=== PATIENT | male | born 1990 | race African-American/Black ===

== ENCOUNTER 2017-12-06 10:02 | Emergency (ER) | payer OTHER ==
[2017-12-06 12:56] LABS: ADD UMIC YES; UR AMORPHOUS CRYSTAL FEW /HPF (NONE SEEN); UR ASCORBIC ACID 40 mg/dL (NEGATIVE); UR BACTERIA FEW /HPF (NONE SEEN); UR BILIRUBIN (Dip) 1+ mg/dL (NEGATIVE); UR BLOOD (Dip) NEGATIVE (NEGATIVE); UR CLARITY TURBID (CLEAR); UR COLOR RED (YELLOW); UR GLUCOSE (Dip) NEGATIVE (NEGATIVE); UR KETONES (Dip) TRACE mg/dL (NEGATIVE); UR LEUKOCYTE ESTERASE (Dip) 2+ Leu/ul (NEGATIVE); UR MUCUS FEW /HPF (NONE SEEN); UR NITRITE (Dip) NEGATIVE (NEGATIVE); UR RBC 5 /HPF (0-5); UR SPECIFIC GRAVITY (Dip) 1.031 (1.003-1.030); UR SQUAMOUS EPITHELIAL CELL FEW /HPF (FEW); UR TOTAL PROTEIN (Dip) 3+ mg/dl (NEGATIVE); UR UROBILINOGEN (Dip) 1+ mg/dL (NEGATIVE); UR WBC 49 /HPF (0-5)
[2017-12-06] MEDS: CEFEPIME 1GM/50 ML (PMX) 50 ML IVPB (13:13)
[2017-12-06 13:20] LABS: ADD MAN DIFF? NO
[2017-12-06 13:23] LABS: WHITE BLOOD COUNT 11.2 10^3/ul (4.8-10.8)
[2017-12-06 13:23] LABS: BASOPHILS % 0.3 % (0.0-2.0); EOSINOPHILS # 0.1 10^3/ul (0.0-0.5); EOSINOPHILS % 1.1 % (0.0-7.0); HEMATOCRIT 33.5 % (42.0-52.0); LYMPHOCYTES # 2.6 10^3/ul (0.8-2.9); LYMPHOCYTES % 22.9 % (15.0-51.0); MEAN CORPUSCULAR HEMOGLOBIN 25.6 pg (29.0-33.0); MEAN CORPUSCULAR HGB CONC 29.9 g/dl (32.0-37.0); MEAN CORPUSCULAR VOLUME 85.9 fl (82.0-101.0); MEAN PLATELET VOLUME 8.2 fl (7.4-10.4); MONOCYTE # 0.7 10^3/ul (0.3-0.9); MONOCYTES % 6.5 % (0.0-11.0); NEUTROPHIL # 7.7 10^3/ul (1.6-7.5); NEUTROPHILS % 68.4 % (39.0-77.0); PLATELET COUNT 499 10^3/UL (140-415); RED CELL DISTRIBUTION WIDTH 19.9 % (11.5-14.5)
[2017-12-06] MEDS: FENTAnyl 50 MCG/ML VIAL IV (13:29)
[2017-12-06 13:43] LABS: ALANINE AMINOTRANSFERASE 18 IU/L (13-69); ALBUMIN 3.1 g/dl (3.3-4.9); ALBUMIN/GLOBULIN RATIO 0.72; ALKALINE PHOSPHATASE 170 IU/L (42-121); ANION GAP 14 (8-16); ASPARTATE AMINO TRANSFERASE 11 IU/L (15-46); BLOOD UREA NITROGEN 10 mg/dl (7-20); CALCIUM 8.2 mg/dl (8.4-10.2); CARBON DIOXIDE 25 mmol/L (21-31); CHLORIDE 112 mmol/L (97-110); CREATININE 0.53 mg/dl (0.61-1.24); GLUCOSE 93 mg/dl (70-220); POTASSIUM 3.6 mmol/L (3.5-5.1); SODIUM 147 mmol/L (135-144); TOTAL PROTEIN 7.4 g/dl (6.1-8.1)
[2017-12-06] MEDS: ONDANSETRON 4 MG INJ IV ×2 (15:36→17:38)
[2017-12-06] MEDS: HYDROmorphONE 0.5 MG/0.5 ML SYG IV ×2 (15:36→17:56)
[2017-12-06] MEDS: DIPHENHYDRAMINE 50 MG INJ IV (17:42)
== END 2017-12-06 19:05 | disposition home or self-care (01) ==
LOC: FTE 10:02 → E/R 19:05
DX: R30.0 Dysuria (principal); R50.9 Fever, unspecified; M54.9 Dorsalgia, unspecified
CPT/HCPCS: 74176; 80053; 81001; 85025; 87086; 96374; 96375; 96376; 99285-25

== ENCOUNTER 2019-02-25 14:28 | Inpatient (IN) | payer OTHER ==
[2019-02-25 18:18] LABS: ADD MAN DIFF? NO
[2019-02-25 18:24] LABS: BASOPHILS % 0.3 % (0.0-2.0); EOSINOPHILS # 0.2 10^3/ul (0.0-0.5); EOSINOPHILS % 3.7 % (0.0-7.0); HEMOGLOBIN 9.6 g/dl (14.0-18.0); LYMPHOCYTES % 32.4 % (15.0-51.0); MEAN CORPUSCULAR HEMOGLOBIN 27.9 pg (29.0-33.0); MEAN PLATELET VOLUME 8.5 fl (7.4-10.4); MONOCYTE # 0.6 10^3/ul (0.3-0.9); MONOCYTES % 9.2 % (0.0-11.0); NEUTROPHIL # 3.3 10^3/ul (1.6-7.5); NEUTROPHILS % 54.1 % (39.0-77.0); PLATELET COUNT 471 10^3/UL (140-415); RED BLOOD COUNT 3.44 10^6/ul (4.70-6.10); RED CELL DISTRIBUTION WIDTH 18.3 % (11.5-14.5)
[2019-02-25 18:24] LABS: WHITE BLOOD COUNT 6.2 10^3/ul (4.8-10.8)
[2019-02-25 18:49] LABS: ALANINE AMINOTRANSFERASE 12 IU/L (13-69); ALBUMIN 3.8 g/dl (3.3-4.9); ALBUMIN/GLOBULIN RATIO 0.86; ALKALINE PHOSPHATASE 197 IU/L (42-121); ANION GAP 7 (5-13); ASPARTATE AMINO TRANSFERASE 25 IU/L (15-46); BILIRUBIN,INDIRECT 0.6 mg/dl (0-1.1); BILIRUBIN,TOTAL 0.6 mg/dl (0.2-1.3); BLOOD UREA NITROGEN 10 mg/dl (7-20); CALCIUM 8.3 mg/dl (8.4-10.2); CARBON DIOXIDE 26 mmol/L (21-31); CHLORIDE 109 mmol/L (97-110); CREATININE 0.71 mg/dl (0.61-1.24); Estimated GFR > 60 mL/min (>60); GLUCOSE 86 mg/dl (70-220); LIPASE 57 U/L (23-300); POTASSIUM 4.6 mmol/L (3.5-5.1); SODIUM 142 mmol/L (135-144); TOTAL PROTEIN 8.2 g/dl (6.1-8.1)
[2019-02-25] MEDS: HYDROCODONE/APAP (10/325) TAB PO (19:52)
[2019-02-25] MEDS ORDERED: DOCUSATE SODIUM 100 MG CAP PO (20:00)
[2019-02-25] MEDS ORDERED: NACL 0.9% 3 ML SYG IV (20:00)
[2019-02-25] MEDS ORDERED: ACETAMINOPHEN 325 MG TAB PO (20:00)
[2019-02-25] MEDS ORDERED: BISACODYL (EC) 5 MG TAB PO (20:00)
[2019-02-25] MEDS: morphine 2 MG INJ IV (21:14)
[2019-02-25] MEDS: DIPHENHYDRAMINE 50 MG INJ IV (21:15)
[2019-02-25] MEDS ORDERED: PENDING SANTYL ORDER FOR WOUND CARE XX (23:00)
[2019-02-25] MEDS: oxyCODONE 15 MG TAB PO (23:04)
[2019-02-26] MEDS: ZOLPIDEM 5 MG TAB PO ×2 (00:03→23:05)
[2019-02-26] MEDS: COLLAGENASE 5 GM (UD JAR) TOP ×2 (00:03→09:00)
[2019-02-26] MEDS: HYDROmorphONE 1 MG/ML SYG IV ×6 (01:32→22:51)
[2019-02-26] MEDS: CARISOPRODOL 350 MG TAB PO ×3 (03:39→18:49)
[2019-02-26] MEDS ORDERED: COLLAGENASE 5 GM (UD JAR) TOP (06:00)
[2019-02-26] MEDS: DIPHENHYDRAMINE 50 MG INJ IV ×3 (06:39→22:52)
[2019-02-26] MEDS: LEVOFLOXACIN 750MG/D5W (PMX) 150 ML IVPB (10:40)
[2019-02-26] MEDS: ASCORBIC ACID 500 MG TAB PO ×2 (13:48→20:11)
[2019-02-26] MEDS: MULTIVITAMINS THERAPEUTIC TAB PO (13:48)
[2019-02-26] MEDS: ZINC SULFATE 220 MG CAP PO (14:05)
[2019-02-26] MEDS: oxyCODONE 15 MG TAB PO ×2 (14:05→18:25)
[2019-02-26 16:05] LABS: ADD MAN DIFF? NO
[2019-02-26 16:12] LABS: ABNORMAL IP MESSAGE 1; BASOPHILS % 0.4 % (0.0-2.0); EOSINOPHILS # 0.2 10^3/ul (0.0-0.5); EOSINOPHILS % 3.4 % (0.0-7.0); HEMATOCRIT 33.8 % (42.0-52.0); HEMOGLOBIN 9.7 g/dl (14.0-18.0); MEAN CORPUSCULAR HEMOGLOBIN 27.7 pg (29.0-33.0); MEAN CORPUSCULAR HGB CONC 28.7 g/dl (32.0-37.0); MEAN CORPUSCULAR VOLUME 96.6 fl (82.0-101.0); MONOCYTE # 0.4 10^3/ul (0.3-0.9); MONOCYTES % 7.2 % (0.0-11.0); NEUTROPHIL # 2.7 10^3/ul (1.6-7.5); NEUTROPHILS % 51.6 % (39.0-77.0); PLATELET COUNT 436 10^3/UL (140-415); POSITIVE DIFF @See below
[2019-02-26 16:12] LABS: WHITE BLOOD COUNT 5.3 10^3/ul (4.8-10.8)
[2019-02-26 16:20] LABS: MEAN PLATELET VOLUME 10.7 fl (7.4-10.4)
[2019-02-26 16:25] LABS: HEMOGLOBIN A1C 4.9 % (0-5.9)
[2019-02-26 16:30] LABS: INR 1.02; PROTIME 13.5 Sec (11.9-14.9); PT RATIO 1.1
[2019-02-26 16:31] LABS: PARTIAL THROMBOPLASTIN TIME 25.2 Sec (23.0-35.0)
[2019-02-26 16:40] LABS: ALBUMIN 3.8 g/dl (3.3-4.9); ALBUMIN/GLOBULIN RATIO 0.92; ALKALINE PHOSPHATASE 188 IU/L (42-121); ANION GAP 11 (5-13); ASPARTATE AMINO TRANSFERASE 22 IU/L (15-46); BILIRUBIN,INDIRECT 0.3 mg/dl (0-1.1); BILIRUBIN,TOTAL 0.3 mg/dl (0.2-1.3); BLOOD UREA NITROGEN 14 mg/dl (7-20); CALCIUM 8.5 mg/dl (8.4-10.2); CARBON DIOXIDE 21 mmol/L (21-31); CHLORIDE 111 mmol/L (97-110); CHOL/HDL RATIO 2.6 RATIO; CHOLESTEROL 131 mg/dl (100-200); CREATININE 0.65 mg/dl (0.61-1.24); Estimated GFR > 60 mL/min (>60); GLUCOSE 92 mg/dl (70-220); HDL CHOLESTEROL 49 mg/dl (30-63); LDL CHOLESTEROL,CALCULATED 66 mg/dl; MAGNESIUM 1.7 mg/dl (1.7-2.5); SODIUM 143 mmol/L (135-144); TOTAL PROTEIN 7.9 g/dl (6.1-8.1); TRIGLYCERIDES 80 mg/dl (0-149)
[2019-02-26 16:55] LABS: ALANINE AMINOTRANSFERASE < 6 IU/L (13-69)
[2019-02-26 17:41] LABS: ADD UMIC YES; UR ASCORBIC ACID 40 mg/dL (NEGATIVE); UR BACTERIA FEW /HPF (NONE SEEN); UR BILIRUBIN (Dip) NEGATIVE (NEGATIVE); UR BLOOD (Dip) NEGATIVE (NEGATIVE); UR CLARITY SLIGHTLY CLOUDY (CLEAR); UR COLOR YELLOW (YELLOW); UR GLUCOSE (Dip) NEGATIVE (NEGATIVE); UR KETONES (Dip) NEGATIVE (NEGATIVE); UR LEUKOCYTE ESTERASE (Dip) NEGATIVE Leu/ul (NEGATIVE); UR NITRITE (Dip) POSITIVE (NEGATIVE); UR RBC 6 /HPF (0-5); UR SPECIFIC GRAVITY (Dip) 1.012 (1.003-1.030); UR TOTAL PROTEIN (Dip) NEGATIVE (NEGATIVE); UR UROBILINOGEN (Dip) NEGATIVE (NEGATIVE); UR WBC 21 /HPF (0-5)
[2019-02-26 18:29] LABS: ANISOCYTOSIS 1+ (0-0); BASOPHIL #M 0.1 10^3/ul (0.0-0.0); BASOPHILS % (M) 2 % (0-2); LYMPHOCYTES #M 1.5 10^3/ul (0.8-2.9); LYMPHOCYTES % (M) 30 % (15-51); MONOCYTE #M 0.3 10^3/ul (0.3-0.9); MONOCYTES % (M) 6 % (0-11); SEGMENTED NEUTROPHILS (M) % 62 % (39-77); SMUDGE%M 20 % (0-0)
[2019-02-26] MEDS: ONDANSETRON 4 MG INJ IV (21:10)
[2019-02-27] MEDS: oxyCODONE 15 MG TAB PO ×5 (00:37→22:26)
[2019-02-27] MEDS: HYDROmorphONE 1 MG/ML SYG IV ×5 (03:06→20:19)
[2019-02-27] MEDS: CARISOPRODOL 350 MG TAB PO ×3 (03:07→20:19)
[2019-02-27] MEDS: DIPHENHYDRAMINE 50 MG INJ IV ×2 (07:23→15:59)
[2019-02-27] MEDS: COLLAGENASE 5 GM (UD JAR) TOP (09:00)
[2019-02-27] MEDS: ZINC SULFATE 220 MG CAP PO (09:38)
[2019-02-27] MEDS: ASCORBIC ACID 500 MG TAB PO ×2 (09:38→20:19)
[2019-02-27] MEDS: MULTIVITAMINS THERAPEUTIC TAB PO (09:38)
[2019-02-27] MEDS: ALPRAZOLAM 1 MG TAB PO ×2 (09:41→17:50)
[2019-02-27] MEDS: LEVOFLOXACIN 750MG/D5W (PMX) 150 ML IVPB (09:41)
[2019-02-27] MEDS: IOHEXOL 300MG/ML 150 ML BTL (10:19)
[2019-02-27] MEDS: LIDOCAINE 1% (MPF) 5 ML VIAL SC (15:00)
[2019-02-28] MEDS: HYDROmorphONE 1 MG/ML SYG IV ×5 (00:46→20:35)
[2019-02-28] MEDS: DIPHENHYDRAMINE 50 MG INJ IV ×4 (00:46→20:34)
[2019-02-28] MEDS: ZOLPIDEM 5 MG TAB PO ×2 (01:32→20:46)
[2019-02-28] MEDS: ALPRAZOLAM 1 MG TAB PO ×3 (02:02→18:22)
[2019-02-28] MEDS: oxyCODONE 15 MG TAB PO ×5 (02:44→21:50)
[2019-02-28] MEDS: CARISOPRODOL 350 MG TAB PO ×3 (05:49→18:22)
[2019-02-28] MEDS: COLLAGENASE 5 GM (UD JAR) TOP (09:00)
[2019-02-28] MEDS ORDERED: CEFAZOLIN 1 GM INJ (12:22)
[2019-02-28] MEDS ORDERED: LIDOCAINE 2% (SDV) 5 ML INJ (12:22)
[2019-02-28] MEDS ORDERED: PROPOFOL 20 ML (12:22)
[2019-02-28] MEDS ORDERED: MIDAZOLAM 1 MG/ML 2 ML INJ (12:22)
[2019-02-28] MEDS ORDERED: FENTAnyl 50 MCG/ML VIAL (12:22)
[2019-02-28] MEDS: MIDAZOLAM 1 MG/ML 2 ML INJ (13:05)
[2019-02-28] MEDS: PROPOFOL 40 ML (13:05)
[2019-02-28] MEDS: IOHEXOL 300MG/ML 30 ML BTL (13:14)
[2019-02-28] MEDS: LIDOCAINE 1% (MPF) 5 ML VIAL (13:14)
[2019-02-28] MEDS ORDERED: HYDROmorphONE 1 MG/5 ML IV SYRINGE IV ×3 (13:30)
[2019-02-28] MEDS ORDERED: ONDANSETRON 4 MG INJ IV (13:30)
[2019-02-28] MEDS ORDERED: ALBUTEROL 0.083% (NEB) 2.5 MG/3 ML AMP HHN (13:30)
[2019-02-28] MEDS ORDERED: LABETALOL HCL 20MG INJ IV (13:30)
[2019-02-28] MEDS: FENTAnyl 50 MCG/ML VIAL IV ×3 (15:13→15:29)
[2019-02-28 16:12] LABS: ADD MAN DIFF? NO
[2019-02-28 16:13] LABS: WHITE BLOOD COUNT 7.3 10^3/ul (4.8-10.8)
[2019-02-28 16:13] LABS: BASOPHILS % 0.3 % (0.0-2.0); EOSINOPHILS # 0.2 10^3/ul (0.0-0.5); EOSINOPHILS % 3.3 % (0.0-7.0); HEMATOCRIT 30.7 % (42.0-52.0); LYMPHOCYTES # 1.7 10^3/ul (0.8-2.9); LYMPHOCYTES % 22.9 % (15.0-51.0); MEAN CORPUSCULAR HGB CONC 29.3 g/dl (32.0-37.0); MEAN CORPUSCULAR VOLUME 95.3 fl (82.0-101.0); MEAN PLATELET VOLUME 8.2 fl (7.4-10.4); MONOCYTE # 0.9 10^3/ul (0.3-0.9); MONOCYTES % 12.3 % (0.0-11.0); NEUTROPHIL # 4.4 10^3/ul (1.6-7.5); NEUTROPHILS % 60.9 % (39.0-77.0); PLATELET COUNT 498 10^3/UL (140-415); RED BLOOD COUNT 3.22 10^6/ul (4.70-6.10); RED CELL DISTRIBUTION WIDTH 18.6 % (11.5-14.5)
[2019-02-28] MEDS: ZINC SULFATE 220 MG CAP PO (16:28)
[2019-02-28] MEDS: MULTIVITAMINS THERAPEUTIC TAB PO (16:28)
[2019-02-28] MEDS: ASCORBIC ACID 500 MG TAB PO ×2 (16:28→20:34)
[2019-02-28 16:35] LABS: ALBUMIN 3.2 g/dl (3.3-4.9); ANION GAP 6 (5-13); BLOOD UREA NITROGEN 13 mg/dl (7-20); CALCIUM 8.2 mg/dl (8.4-10.2); CARBON DIOXIDE 27 mmol/L (21-31); CHLORIDE 108 mmol/L (97-110); CREATININE 0.64 mg/dl (0.61-1.24); GLUCOSE 86 mg/dl (70-220); MAGNESIUM 1.7 mg/dl (1.7-2.5); PHOSPHORUS 3.7 mg/dl (2.5-4.9); POTASSIUM 4.8 mmol/L (3.5-5.1); SODIUM 141 mmol/L (135-144)
[2019-02-28] MEDS: LEVOFLOXACIN 750 MG TABLET PO (17:20)
[2019-02-28] MEDS: AMOXICILLIN 500 MG CAP PO (20:34)
[2019-02-28] MEDS ORDERED: HYDROmorphONE 2 MG/ML SYG (23:03)
[2019-02-28] MEDS: HYDROmorphONE 2 MG/ML SYG IV (23:06)
[2019-03-01] MEDS: DIPHENHYDRAMINE 50 MG INJ IV ×6 (01:30→23:31)
[2019-03-01] MEDS: oxyCODONE 15 MG TAB PO ×6 (01:48→22:19)
[2019-03-01] MEDS: ALPRAZOLAM 1 MG TAB PO ×3 (02:40→18:22)
[2019-03-01] MEDS: CARISOPRODOL 350 MG TAB PO ×3 (02:40→18:18)
[2019-03-01] MEDS: HYDROmorphONE 2 MG/ML SYG IV ×6 (03:37→23:32)
[2019-03-01] MEDS: COLLAGENASE 5 GM (UD JAR) TOP (09:00)
[2019-03-01] MEDS: AMOXICILLIN 500 MG CAP PO ×3 (10:18→21:15)
[2019-03-01] MEDS: ASCORBIC ACID 500 MG TAB PO ×2 (10:18→21:15)
[2019-03-01] MEDS: MULTIVITAMINS THERAPEUTIC TAB PO (10:19)
[2019-03-01] MEDS: ZINC SULFATE 220 MG CAP PO (10:19)
[2019-03-01] MEDS: LEVOFLOXACIN 750 MG TABLET PO (10:30)
[2019-03-01] MEDS: TRIMETHOPRIM/SULFAMETHOX (DS) TAB PO ×2 (14:14→21:15)
[2019-03-01] MEDS: ZOLPIDEM 5 MG TAB PO (21:20)
[2019-03-02] MEDS: CARISOPRODOL 350 MG TAB PO ×3 (02:26→18:34)
[2019-03-02] MEDS: ALPRAZOLAM 1 MG TAB PO ×3 (02:26→18:34)
[2019-03-02] MEDS: DAKINS 0.0125%(1/40) 473 ML SOLUTION TP ×2 (02:51→09:00)
[2019-03-02] MEDS: oxyCODONE 15 MG TAB PO ×5 (03:07→20:32)
[2019-03-02] MEDS: HYDROmorphONE 2 MG/ML SYG IV ×5 (03:44→23:28)
[2019-03-02] MEDS: DIPHENHYDRAMINE 50 MG INJ IV ×6 (03:44→23:28)
[2019-03-02] MEDS: AMOXICILLIN 500 MG CAP PO ×3 (08:03→20:33)
[2019-03-02] MEDS: MULTIVITAMINS THERAPEUTIC TAB PO (08:03)
[2019-03-02] MEDS: ASCORBIC ACID 500 MG TAB PO ×2 (08:03→20:33)
[2019-03-02] MEDS: ZINC SULFATE 220 MG CAP PO (08:03)
[2019-03-02] MEDS: TRIMETHOPRIM/SULFAMETHOX (DS) TAB PO ×2 (08:03→20:33)
[2019-03-02] MEDS: COLLAGENASE 5 GM (UD JAR) TOP (09:00)
[2019-03-02] MEDS: HYDROmorphONE 1 MG/ML SYG IV (19:27)
[2019-03-02] MEDS: ZOLPIDEM 5 MG TAB PO (22:28)
[2019-03-03] MEDS: oxyCODONE 15 MG TAB PO ×6 (00:34→21:48)
[2019-03-03] MEDS: HYDROmorphONE 2 MG/ML SYG IV ×5 (03:30→20:15)
[2019-03-03] MEDS: DIPHENHYDRAMINE 50 MG INJ IV ×5 (03:30→20:15)
[2019-03-03] MEDS: DAKINS 0.0125%(1/40) 473 ML SOLUTION TP ×2 (05:11→08:59)
[2019-03-03] MEDS: ALPRAZOLAM 1 MG TAB PO ×3 (06:57→23:08)
[2019-03-03] MEDS: CARISOPRODOL 350 MG TAB PO ×3 (06:57→23:08)
[2019-03-03] MEDS: ZINC SULFATE 220 MG CAP PO (08:58)
[2019-03-03] MEDS: AMOXICILLIN 500 MG CAP PO ×3 (08:58→20:16)
[2019-03-03] MEDS: COLLAGENASE 5 GM (UD JAR) TOP (08:58)
[2019-03-03] MEDS: TRIMETHOPRIM/SULFAMETHOX (DS) TAB PO ×2 (08:58→20:16)
[2019-03-03] MEDS: ASCORBIC ACID 500 MG TAB PO ×2 (08:58→20:16)
[2019-03-03] MEDS: MULTIVITAMINS THERAPEUTIC TAB PO (08:58)
[2019-03-03] MEDS: ONDANSETRON 4 MG INJ IV (14:13)
[2019-03-03] MEDS: oxyCODONE 5 MG TAB PO ×2 (17:49→21:51)
[2019-03-03 20:43] LABS: ALBUMIN 3.6 g/dl (3.3-4.9); ANION GAP 10 (5-13); BLOOD UREA NITROGEN 19 mg/dl (7-20); CALCIUM 9.1 mg/dl (8.4-10.2); CARBON DIOXIDE 21 mmol/L (21-31); CHLORIDE 110 mmol/L (97-110); CREATININE 0.76 mg/dl (0.61-1.24); GLUCOSE 101 mg/dl (70-220); PHOSPHORUS 4.7 mg/dl (2.5-4.9); SODIUM 141 mmol/L (135-144)
[2019-03-03] MEDS: ZOLPIDEM 5 MG TAB PO (21:48)
[2019-03-04] MEDS: HYDROmorphONE 2 MG/ML SYG IV ×3 (00:19→08:39)
[2019-03-04] MEDS: DIPHENHYDRAMINE 50 MG INJ IV ×6 (00:19→21:16)
[2019-03-04] MEDS: oxyCODONE 5 MG TAB PO ×3 (02:14→10:32)
[2019-03-04] MEDS: oxyCODONE 15 MG TAB PO ×3 (02:14→10:32)
[2019-03-04] MEDS: DAKINS 0.0125%(1/40) 473 ML SOLUTION TP (06:29)
[2019-03-04] MEDS: CARISOPRODOL 350 MG TAB PO ×2 (07:10→15:44)
[2019-03-04] MEDS: ALPRAZOLAM 1 MG TAB PO ×2 (07:10→15:33)
[2019-03-04] MEDS: ZINC SULFATE 220 MG CAP PO (08:39)
[2019-03-04] MEDS: MULTIVITAMINS THERAPEUTIC TAB PO (08:39)
[2019-03-04] MEDS: ASCORBIC ACID 500 MG TAB PO ×2 (08:39→20:06)
[2019-03-04] MEDS: TRIMETHOPRIM/SULFAMETHOX (DS) TAB PO ×2 (08:39→20:06)
[2019-03-04] MEDS: AMOXICILLIN 500 MG CAP PO ×3 (08:39→20:05)
[2019-03-04] MEDS: COLLAGENASE 5 GM (UD JAR) TOP (08:39)
[2019-03-04] MEDS ORDERED: OXYCODONE/ACETAMINOPHEN (10/325) TAB PO (11:00)
[2019-03-04] MEDS: HYDROmorphONE 1 MG/ML SYG IV ×3 (12:58→21:16)
[2019-03-04 16:04] LABS: ADD MAN DIFF? NO
[2019-03-04 16:06] LABS: BASOPHILS % 0.3 % (0.0-2.0); EOSINOPHILS # 0.3 10^3/ul (0.0-0.5); EOSINOPHILS % 5.7 % (0.0-7.0); HEMATOCRIT 34.1 % (42.0-52.0); LYMPHOCYTES # 1.9 10^3/ul (0.8-2.9); LYMPHOCYTES % 32.1 % (15.0-51.0); MEAN CORPUSCULAR HEMOGLOBIN 28.1 pg (29.0-33.0); MEAN CORPUSCULAR HGB CONC 29.3 g/dl (32.0-37.0); MEAN CORPUSCULAR VOLUME 95.8 fl (82.0-101.0); MEAN PLATELET VOLUME 8.8 fl (7.4-10.4); MONOCYTE # 0.5 10^3/ul (0.3-0.9); MONOCYTES % 7.7 % (0.0-11.0); NEUTROPHIL # 3.1 10^3/ul (1.6-7.5); NEUTROPHILS % 53.5 % (39.0-77.0); PLATELET COUNT 511 10^3/UL (140-415); RED BLOOD COUNT 3.56 10^6/ul (4.70-6.10); RED CELL DISTRIBUTION WIDTH 17.8 % (11.5-14.5)
[2019-03-04 16:06] LABS: WHITE BLOOD COUNT 5.8 10^3/ul (4.8-10.8)
[2019-03-04] MEDS: OXYCODONE/ACETAMINOPHEN (10/325) TAB PO (20:11)
[2019-03-04] MEDS: ZOLPIDEM 5 MG TAB PO (21:11)
[2019-03-05] MEDS: ALPRAZOLAM 1 MG TAB PO ×3 (00:18→18:47)
[2019-03-05] MEDS: CARISOPRODOL 350 MG TAB PO ×3 (00:18→18:47)
[2019-03-05] MEDS: DIPHENHYDRAMINE 50 MG INJ IV ×6 (01:22→21:57)
[2019-03-05] MEDS: HYDROmorphONE 1 MG/ML SYG IV ×6 (01:22→21:57)
[2019-03-05] MEDS: ZINC SULFATE 220 MG CAP PO (08:30)
[2019-03-05] MEDS: MULTIVITAMINS THERAPEUTIC TAB PO (08:30)
[2019-03-05] MEDS: TRIMETHOPRIM/SULFAMETHOX (DS) TAB PO ×2 (08:30→20:59)
[2019-03-05] MEDS: AMOXICILLIN 500 MG CAP PO ×3 (08:30→20:59)
[2019-03-05] MEDS: ASCORBIC ACID 500 MG TAB PO ×2 (08:30→20:59)
[2019-03-05] MEDS: OXYCODONE/ACETAMINOPHEN (10/325) TAB PO ×3 (08:33→20:59)
[2019-03-05] MEDS: COLLAGENASE 5 GM (UD JAR) TOP (09:00)
[2019-03-05] MEDS: DAKINS 0.0125%(1/40) 473 ML SOLUTION TP (18:39)
[2019-03-05] MEDS: ZOLPIDEM 5 MG TAB PO (21:57)
[2019-03-06] MEDS: DIPHENHYDRAMINE 50 MG INJ IV ×4 (02:34→14:06)
[2019-03-06] MEDS: HYDROmorphONE 1 MG/ML SYG IV ×4 (02:35→13:52)
[2019-03-06] MEDS: DAKINS 0.0125%(1/40) 473 ML SOLUTION TP (09:00)
[2019-03-06] MEDS: COLLAGENASE 5 GM (UD JAR) TOP (09:00)
[2019-03-06] MEDS: AMOXICILLIN 500 MG CAP PO ×2 (09:04→12:42)
[2019-03-06] MEDS: MULTIVITAMINS THERAPEUTIC TAB PO (09:04)
[2019-03-06] MEDS: CARISOPRODOL 350 MG TAB PO (09:04)
[2019-03-06] MEDS: TRIMETHOPRIM/SULFAMETHOX (DS) TAB PO (09:04)
[2019-03-06] MEDS: ZINC SULFATE 220 MG CAP PO (09:04)
[2019-03-06] MEDS: ALPRAZOLAM 1 MG TAB PO (09:05)
[2019-03-06] MEDS: ASCORBIC ACID 500 MG TAB PO (09:05)
[2019-03-06] MEDS ORDERED: DIPHENHYDRAMINE 50 MG INJ IM (14:00)
== END 2019-03-06 14:50 | disposition home or self-care (01) | DRG 673 ==
LOC: E/R 14:28 → PP2 21:58
PROC: 0T25X0Z Change Drainage Device in Kidney, External Approach (ICD-10-PCS; principal; 2019-02-28)
PROC: 0JB70ZZ Excision of Back Subcutaneous Tissue and Fascia, Open Approach (ICD-10-PCS; 2019-03-05)
PROC: 0JB90ZZ Excision of Buttock Subcutaneous Tissue and Fascia, Open Approach (ICD-10-PCS; 2019-03-05)
DX: T83.022A Displacement of nephrostomy catheter, initial encounter (principal); L89.324 Pressure ulcer of left buttock, stage 4; L89.154 Pressure ulcer of sacral region, stage 4; G82.20 Paraplegia, unspecified; M00.9 Pyogenic arthritis, unspecified; M86.69 Other chronic osteomyelitis, multiple sites; F13.20 Sedative, hypnotic or anxiolytic dependence, uncomplicated; N13.6 Pyonephrosis; G89.29 Other chronic pain; Z95.9 Presence of cardiac and vascular implant and graft, unspecified; F17.200 Nicotine dependence, unspecified, uncomplicated; K80.20 Calculus of gallbladder without cholecystitis without obstruction; N31.9 Neuromuscular dysfunction of bladder, unspecified; Z96.0 Presence of urogenital implants; F32.9 Major depressive disorder, single episode, unspecified; D64.9 Anemia, unspecified; F41.9 Anxiety disorder, unspecified; K43.9 Ventral hernia without obstruction or gangrene; Z86.718 Personal history of other venous thrombosis and embolism; Z93.3 Colostomy status; Z87.440 Personal history of urinary (tract) infections
CPT/HCPCS: 36415; 74176; 74425; 74475; 76775; 80053; 80061; 80069; 81001; 83036; 83690; 83735; 84443; 85025; 85610; 85730; 87070; 87086; 99285-25; G0378

== ENCOUNTER 2019-03-11 11:07 | Inpatient (IN) | payer OTHER ==
[2019-03-11] MEDS: NITROFURANTOIN (SR) 100 MG CAP PO (11:32)
[2019-03-11] MEDS: CEPHALEXIN 500 MG CAP PO (11:33)
[2019-03-11] MEDS: ONDANSETRON (ODT) 4 MG TAB ODT (11:39)
[2019-03-11] MEDS: LORAZEPAM 1 MG TAB PO (12:22)
[2019-03-11 15:38] LABS: HEMATOCRIT 42.2 % (42.0-52.0); HEMOGLOBIN 13.5 g/dl (14.0-18.0); MEAN CORPUSCULAR HEMOGLOBIN 28.5 pg (29.0-33.0); MEAN PLATELET VOLUME 8.1 fl (7.4-10.4); PLATELET COUNT 902 10^3/UL (140-415); RED BLOOD COUNT 4.74 10^6/ul (4.70-6.10); RED CELL DISTRIBUTION WIDTH 17.4 % (11.5-14.5)
[2019-03-11 15:38] LABS: WHITE BLOOD COUNT 12.2 10^3/ul (4.8-10.8)
[2019-03-11 15:40] LABS: ADD MAN DIFF? YES
[2019-03-11 15:58] LABS: ANION GAP 31 (5-13); BLOOD UREA NITROGEN 86 mg/dl (7-20); CARBON DIOXIDE 13 mmol/L (21-31); CHLORIDE 86 mmol/L (97-110); GLUCOSE 122 mg/dl (70-220); SODIUM 130 mmol/L (135-144)
[2019-03-11 16:04] LABS: Estimated GFR 19 mL/min (>60)
[2019-03-11 16:15] LABS: POTASSIUM 7.7 mmol/L (3.5-5.1)
[2019-03-11 16:43] LABS: BAND NEUTROPHILS #M 0.1 10^3/ul (0.0-0.6); BAND NEUTROPHILS % (M) 1 % (0-4); EOSINOPHILS % (M) 1 % (0-7); LYMPHOCYTES #M 1.8 10^3/ul (0.8-2.9); LYMPHOCYTES % (M) 15 % (15-51); MONOCYTE #M 0.8 10^3/ul (0.3-0.9); MONOCYTES % (M) 7 % (0-11); PLATELET ESTIMATE INCREASED; POIKILOCYTOSIS 2+ (0-0); POLYCHROMASIA 1+ (0-0); SEG NEUT #M 9.3 10^3/ul (1.6-7.5); SEGMENTED NEUTROPHILS (M) % 76 % (39-77)
[2019-03-11 17:55] LABS: ANION GAP 28 (5-13); BLOOD UREA NITROGEN 86 mg/dl (7-20); CALCIUM 9.9 mg/dl (8.4-10.2); CARBON DIOXIDE 15 mmol/L (21-31); CHLORIDE 86 mmol/L (97-110); GLUCOSE 123 mg/dl (70-220); SODIUM 129 mmol/L (135-144)
[2019-03-11 18:08] LABS: Estimated GFR 20 mL/min (>60)
[2019-03-11 18:10] LABS: CREATININE 4.33 mg/dl (0.61-1.24)
[2019-03-11 18:12] LABS: POTASSIUM 7.2 mmol/L (3.5-5.1)
[2019-03-11] MEDS: SOD CHLORIDE 0.9% 1,000 ML IV ×2 (18:40→20:46)
[2019-03-11] MEDS ORDERED: DEXTROSE 50% 50 ML SYRINGE IV (19:00)
[2019-03-11] MEDS: INSULIN REGULAR, HUMAN 100 UNIT/1 ML 3ML VIAL IVP (19:14)
[2019-03-11] MEDS: CA CHLORIDE 10% 10 ML SYRINGE IV (20:07)
[2019-03-11] MEDS: ONDANSETRON 4 MG INJ IV ×2 (20:07→23:53)
[2019-03-11] MEDS: DEXTROSE 50% 50 ML SYRINGE IV (20:10)
[2019-03-11] MEDS: ALBUTEROL 0.083% (NEB) 2.5 MG/3 ML AMP HHN (20:18)
[2019-03-11] MEDS: HYDROmorphONE 1 MG/ML SYG IV ×2 (20:45→23:54)
[2019-03-11] MEDS: NA BICARBONATE 8.4% 50 ML SYG IV (20:46)
[2019-03-11] MEDS ORDERED: ACETAMINOPHEN 325 MG TAB PO (22:30)
[2019-03-11] MEDS ORDERED: DOCUSATE SODIUM 100 MG CAP PO (22:30)
[2019-03-11] MEDS ORDERED: BISACODYL (EC) 5 MG TAB PO (22:30)
[2019-03-12] MEDS: HYDROmorphONE 1 MG/ML SYG IV ×5 (04:10→20:18)
[2019-03-12] MEDS: ONDANSETRON 4 MG INJ IV ×2 (06:09→12:18)
[2019-03-12 06:15] LABS: ADD MAN DIFF? NO
[2019-03-12 06:20] LABS: WHITE BLOOD COUNT 10.6 10^3/ul (4.8-10.8)
[2019-03-12 06:20] LABS: ABNORMAL IP MESSAGE 1; BASOPHILS % 0.2 % (0.0-2.0); EOSINOPHILS # 0.1 10^3/ul (0.0-0.5); EOSINOPHILS % 0.5 % (0.0-7.0); HEMATOCRIT 40.6 % (42.0-52.0); HEMOGLOBIN 13.2 g/dl (14.0-18.0); LYMPHOCYTES % 9.5 % (15.0-51.0); MEAN CORPUSCULAR HEMOGLOBIN 28.3 pg (29.0-33.0); MEAN CORPUSCULAR HGB CONC 32.5 g/dl (32.0-37.0); MEAN CORPUSCULAR VOLUME 86.9 fl (82.0-101.0); MEAN PLATELET VOLUME 8.5 fl (7.4-10.4); MONOCYTE # 1.5 10^3/ul (0.3-0.9); MONOCYTES % 14.4 % (0.0-11.0); NEUTROPHIL # 7.9 10^3/ul (1.6-7.5); NEUTROPHILS % 74.9 % (39.0-77.0); POSITIVE DIFF @See below; RED BLOOD COUNT 4.67 10^6/ul (4.70-6.10); RED CELL DISTRIBUTION WIDTH 17.1 % (11.5-14.5)
[2019-03-12] MEDS: CEFTRIAXONE 2 GM/50 ML (PMX) 50 ML IVPB (06:22)
[2019-03-12 06:27] LABS: PLATELET COUNT 756 10^3/UL (140-415)
[2019-03-12 06:44] LABS: ANION GAP 28 (5-13); BLOOD UREA NITROGEN 97 mg/dl (7-20); CALCIUM 10.3 mg/dl (8.4-10.2); CARBON DIOXIDE 15 mmol/L (21-31); CHLORIDE 90 mmol/L (97-110); GLUCOSE 116 mg/dl (70-220); POTASSIUM 5.9 mmol/L (3.5-5.1); SODIUM 133 mmol/L (135-144)
[2019-03-12 06:50] LABS: Estimated GFR 22 mL/min (>60)
[2019-03-12 06:52] LABS: CREATININE 3.95 mg/dl (0.61-1.24)
[2019-03-12 07:57] LABS: ADD UMIC YES; UR ASCORBIC ACID NEGATIVE (NEGATIVE); UR BACTERIA MODERATE /HPF (NONE SEEN); UR BILIRUBIN (Dip) NEGATIVE (NEGATIVE); UR BLOOD (Dip) 1+ mg/dL (NEGATIVE); UR BUDDING YEAST FEW /HPF (NONE SEEN); UR CLARITY CLOUDY (CLEAR); UR COLOR AMBER (YELLOW); UR GLUCOSE (Dip) NEGATIVE (NEGATIVE); UR KETONES (Dip) NEGATIVE (NEGATIVE); UR LEUKOCYTE ESTERASE (Dip) 2+ Leu/ul (NEGATIVE); UR NITRITE (Dip) NEGATIVE (NEGATIVE); UR RBC 16 /HPF (0-5); UR SPECIFIC GRAVITY (Dip) 1.016 (1.003-1.030); UR TOTAL PROTEIN (Dip) 2+ mg/dl (NEGATIVE); UR UROBILINOGEN (Dip) 1+ mg/dL (NEGATIVE); UR WBC 87 /HPF (0-5)
[2019-03-12 08:13] LABS: SODIUM,URINE RANDOM 46 mmol/L (30-90)
[2019-03-12] MEDS: SOD CHLORIDE 0.9% 1,000 ML IV ×2 (08:14→18:00)
[2019-03-12 08:17] LABS: CREATININE,URINE RANDOM 88.03 mg/dl (20-370)
[2019-03-12 08:22] LABS: PROTEIN/CREAT RATIO 4.27 RATIO
[2019-03-12 09:38] LABS: OSMOLALITY,URINE 310 mOsm/kg (250-1200)
[2019-03-12] MEDS ORDERED: ALPRAZOLAM 1 MG TAB PO (14:00)
[2019-03-12] MEDS: LORAZEPAM 2 MG INJ IV ×3 (14:14→22:00)
[2019-03-12 15:32] LABS: ANION GAP 29 (5-13); BLOOD UREA NITROGEN 105 mg/dl (7-20); CALCIUM 10.3 mg/dl (8.4-10.2); CHLORIDE 93 mmol/L (97-110); GLUCOSE 121 mg/dl (70-220); POTASSIUM 5.8 mmol/L (3.5-5.1); SODIUM 132 mmol/L (135-144)
[2019-03-12 15:38] LABS: Estimated GFR 28 mL/min (>60)
[2019-03-12 15:44] LABS: CARBON DIOXIDE 10 mmol/L (21-31); CREATININE 3.26 mg/dl (0.61-1.24)
[2019-03-12 15:54] LABS: OSMOLALITY 295 mOsm/kg (280-295)
[2019-03-13] MEDS: HYDROmorphONE 1 MG/ML SYG IV ×8 (00:34→22:50)
[2019-03-13] MEDS: LORAZEPAM 2 MG INJ IV ×7 (01:57→23:35)
[2019-03-13] MEDS: SOD CHLORIDE 0.9% 1,000 ML IV ×3 (01:58→17:54)
[2019-03-13] MEDS: CEFTRIAXONE 2 GM/50 ML (PMX) 50 ML IVPB (06:01)
[2019-03-13 06:02] LABS: CREATININE,URINE RANDOM 93.93 mg/dl (20-370)
[2019-03-13 06:03] LABS: ADD UMIC YES; UR ASCORBIC ACID 40 mg/dL (NEGATIVE); UR BACTERIA FEW /HPF (NONE SEEN); UR BILIRUBIN (Dip) NEGATIVE (NEGATIVE); UR BLOOD (Dip) 1+ mg/dL (NEGATIVE); UR CLARITY SLIGHTLY CLOUDY (CLEAR); UR COLOR YELLOW (YELLOW); UR GLUCOSE (Dip) NEGATIVE (NEGATIVE); UR KETONES (Dip) NEGATIVE (NEGATIVE); UR LEUKOCYTE ESTERASE (Dip) NEGATIVE Leu/ul (NEGATIVE); UR NITRITE (Dip) NEGATIVE (NEGATIVE); UR RBC 7 /HPF (0-5); UR SPECIFIC GRAVITY (Dip) 1.015 (1.003-1.030); UR TOTAL PROTEIN (Dip) 1+ mg/dl (NEGATIVE); UR UROBILINOGEN (Dip) NEGATIVE (NEGATIVE); UR WBC 23 /HPF (0-5)
[2019-03-13 06:05] LABS: SODIUM,URINE RANDOM 21 mmol/L (30-90)
[2019-03-13] MEDS ORDERED: PENDING SANTYL ORDER FOR WOUND CARE XX (06:30)
[2019-03-13 10:33] LABS: ADD MAN DIFF? NO
[2019-03-13 10:35] LABS: BASOPHILS % 0.7 % (0.0-2.0); EOSINOPHILS # 0.2 10^3/ul (0.0-0.5); EOSINOPHILS % 3.3 % (0.0-7.0); HEMATOCRIT 36.5 % (42.0-52.0); HEMOGLOBIN 11.5 g/dl (14.0-18.0); LYMPHOCYTES # 1.2 10^3/ul (0.8-2.9); LYMPHOCYTES % 19.8 % (15.0-51.0); MEAN CORPUSCULAR HGB CONC 31.5 g/dl (32.0-37.0); MEAN PLATELET VOLUME 8.3 fl (7.4-10.4); MONOCYTE # 1.1 10^3/ul (0.3-0.9); MONOCYTES % 17.8 % (0.0-11.0); NEUTROPHIL # 3.5 10^3/ul (1.6-7.5); NEUTROPHILS % 57.7 % (39.0-77.0); PLATELET COUNT 737 10^3/UL (140-415); RED CELL DISTRIBUTION WIDTH 16.8 % (11.5-14.5)
[2019-03-13 10:57] LABS: ANION GAP 18 (5-13); BLOOD UREA NITROGEN 84 mg/dl (7-20); CALCIUM 9.7 mg/dl (8.4-10.2); CARBON DIOXIDE 16 mmol/L (21-31); CHLORIDE 101 mmol/L (97-110); CREATININE 1.39 mg/dl (0.61-1.24); Estimated GFR > 60 mL/min (>60); GLUCOSE 105 mg/dl (70-220); MAGNESIUM 2.7 mg/dl (1.7-2.5); PHOSPHORUS 4.2 mg/dl (2.5-4.9); POTASSIUM 4.6 mmol/L (3.5-5.1); SODIUM 135 mmol/L (135-144)
[2019-03-13] MEDS: ONDANSETRON 4 MG INJ IV (11:01)
[2019-03-13 14:43] LABS: ALBUMIN 4.6 g/dl (3.3-4.9); ALKALINE PHOSPHATASE 193 IU/L (42-121); AMYLASE 125 U/L (11-123); ASPARTATE AMINO TRANSFERASE 20 IU/L (15-46); BILIRUBIN,INDIRECT 0.5 mg/dl (0-1.1); BILIRUBIN,TOTAL 0.5 mg/dl (0.2-1.3); LIPASE 456 U/L (23-300); TOTAL PROTEIN 9.7 g/dl (6.1-8.1)
[2019-03-13 14:48] LABS: ALANINE AMINOTRANSFERASE < 6 IU/L (13-69)
[2019-03-13] MEDS: DAKINS 0.0125%(1/40) 473 ML SOLUTION TP (21:00)
[2019-03-14] MEDS: HYDROmorphONE 1 MG/ML SYG IV ×6 (02:51→22:07)
[2019-03-14] MEDS: DIPHENHYDRAMINE 50 MG INJ IV ×4 (02:53→23:05)
[2019-03-14] MEDS: LORAZEPAM 2 MG INJ IV ×4 (03:57→21:00)
[2019-03-14] MEDS: DAKINS 0.0125%(1/40) 473 ML SOLUTION TP ×2 (09:00→21:00)
[2019-03-14] MEDS: CEFTRIAXONE 2 GM/50 ML (PMX) 50 ML IVPB (10:56)
[2019-03-14] MEDS: SOD CHLORIDE 0.45% 1,000 ML IV ×2 (10:56→21:51)
[2019-03-14 13:09] LABS: HEMATOCRIT 31.3 % (42.0-52.0); HEMOGLOBIN 9.9 g/dl (14.0-18.0); MEAN CORPUSCULAR HEMOGLOBIN 28.7 pg (29.0-33.0); MEAN CORPUSCULAR HGB CONC 31.6 g/dl (32.0-37.0); MEAN CORPUSCULAR VOLUME 90.7 fl (82.0-101.0); MEAN PLATELET VOLUME 8.4 fl (7.4-10.4); PLATELET COUNT 696 10^3/UL (140-415); RED BLOOD COUNT 3.45 10^6/ul (4.70-6.10); RED CELL DISTRIBUTION WIDTH 16.5 % (11.5-14.5)
[2019-03-14 13:09] LABS: WHITE BLOOD COUNT 5.3 10^3/ul (4.8-10.8)
[2019-03-14 13:25] LABS: BASOPHILS % 0.6 % (0.0-2.0); EOSINOPHILS # 0.2 10^3/ul (0.0-0.5); EOSINOPHILS % 3.8 % (0.0-7.0); LYMPHOCYTES # 1.4 10^3/ul (0.8-2.9); MONOCYTES % 18.3 % (0.0-11.0); NEUTROPHIL # 2.7 10^3/ul (1.6-7.5); NEUTROPHILS % 50.9 % (39.0-77.0)
[2019-03-14 13:27] LABS: ADD MAN DIFF? NO
[2019-03-14 13:34] LABS: ANION GAP 14 (5-13); BLOOD UREA NITROGEN 51 mg/dl (7-20); CALCIUM 9.1 mg/dl (8.4-10.2); CARBON DIOXIDE 19 mmol/L (21-31); CHLORIDE 105 mmol/L (97-110); Estimated GFR > 60 mL/min (>60); GLUCOSE 103 mg/dl (70-220); LIPASE 644 U/L (23-300); MAGNESIUM 2.7 mg/dl (1.7-2.5); PHOSPHORUS 2.6 mg/dl (2.5-4.9); POTASSIUM 4.4 mmol/L (3.5-5.1); SODIUM 138 mmol/L (135-144)
[2019-03-14 13:34] LABS: AMYLASE 147 U/L (11-123)
[2019-03-14 14:43] LABS: CREATININE, RANDOM URINE 103 mg/dL (20-320); MICROALBUMIN 8.7 mg/dL; MICROALBUMIN/CREATININE RATIO 84 (<30)
[2019-03-14] MEDS: FLUCONAZOLE 100 MG/50 ML (PMX) 50 ML IVPB (19:34)
[2019-03-15] MEDS: LORAZEPAM 2 MG INJ IV ×5 (01:00→17:53)
[2019-03-15] MEDS: SOD CHLORIDE 0.45% 1,000 ML IV ×2 (01:00→16:27)
[2019-03-15] MEDS: HYDROmorphONE 1 MG/ML SYG IV ×8 (01:01→22:38)
[2019-03-15] MEDS: DIPHENHYDRAMINE 50 MG INJ IV ×4 (04:59→22:38)
[2019-03-15] MEDS: CEFTRIAXONE 2 GM/50 ML (PMX) 50 ML IVPB (06:28)
[2019-03-15] MEDS: DAKINS 0.0125%(1/40) 473 ML SOLUTION TP ×2 (09:00→20:45)
[2019-03-15 14:00] LABS: ADD MAN DIFF? NO
[2019-03-15 14:01] LABS: BASOPHILS % 0.6 % (0.0-2.0); EOSINOPHILS # 0.4 10^3/ul (0.0-0.5); EOSINOPHILS % 7.1 % (0.0-7.0); HEMATOCRIT 30.5 % (42.0-52.0); HEMOGLOBIN 9.5 g/dl (14.0-18.0); LYMPHOCYTES % 31.8 % (15.0-51.0); MEAN CORPUSCULAR HEMOGLOBIN 28.7 pg (29.0-33.0); MEAN CORPUSCULAR HGB CONC 31.1 g/dl (32.0-37.0); MEAN CORPUSCULAR VOLUME 92.1 fl (82.0-101.0); MEAN PLATELET VOLUME 8.2 fl (7.4-10.4); MONOCYTE # 0.5 10^3/ul (0.3-0.9); MONOCYTES % 8.1 % (0.0-11.0); NEUTROPHIL # 3.2 10^3/ul (1.6-7.5); NEUTROPHILS % 52.1 % (39.0-77.0); PLATELET COUNT 681 10^3/UL (140-415); RED BLOOD COUNT 3.31 10^6/ul (4.70-6.10); RED CELL DISTRIBUTION WIDTH 16.1 % (11.5-14.5)
[2019-03-15 14:01] LABS: WHITE BLOOD COUNT 6.2 10^3/ul (4.8-10.8)
[2019-03-15 14:21] LABS: ANION GAP 10 (5-13); BLOOD UREA NITROGEN 27 mg/dl (7-20); CALCIUM 9.2 mg/dl (8.4-10.2); CARBON DIOXIDE 19 mmol/L (21-31); CHLORIDE 107 mmol/L (97-110); Estimated GFR > 60 mL/min (>60); GLUCOSE 151 mg/dl (70-220); MAGNESIUM 2.3 mg/dl (1.7-2.5); PHOSPHORUS 2.4 mg/dl (2.5-4.9); SODIUM 136 mmol/L (135-144)
[2019-03-15] MEDS: FLUCONAZOLE 100 MG/50 ML (PMX) 50 ML IVPB (16:29)
[2019-03-15] MEDS: LINEZOLID 600 MG/300 ML (PMX) 300 ML IVPB (18:28)
[2019-03-15] MEDS: COLISTIMETHATE 75 MG in SOD CHLORIDE 0.9% 100 ML IVPB (20:43)
[2019-03-16] MEDS: LORAZEPAM 2 MG INJ IV ×4 (02:18→16:44)
[2019-03-16] MEDS: HYDROmorphONE 1 MG/ML SYG IV ×8 (02:18→17:34)
[2019-03-16] MEDS ORDERED: HYDROmorphONE 1 MG/ML SYG IV (03:30)
[2019-03-16] MEDS: SOD CHLORIDE 0.45% 1,000 ML IV ×3 (03:37→18:54)
[2019-03-16] MEDS: DIPHENHYDRAMINE 50 MG INJ IV ×3 (05:14→17:32)
[2019-03-16] MEDS: COLISTIMETHATE 75 MG in SOD CHLORIDE 0.9% 100 ML IVPB ×2 (09:46→21:54)
[2019-03-16] MEDS: DAKINS 0.0125%(1/40) 473 ML SOLUTION TP ×2 (09:46→21:00)
[2019-03-16] MEDS: NACL 0.9% 3 ML SYG IV (09:47)
[2019-03-16] MEDS: LINEZOLID 600 MG/300 ML (PMX) 300 ML IVPB ×2 (11:02→22:34)
[2019-03-16] MEDS: FLUCONAZOLE 100 MG/50 ML (PMX) 50 ML IVPB (16:44)
[2019-03-17] MEDS: DIPHENHYDRAMINE 50 MG INJ IV ×3 (01:54→15:48)
[2019-03-17] MEDS: HYDROmorphONE 1 MG/ML SYG IV ×5 (01:55→14:41)
[2019-03-17] MEDS: LORAZEPAM 2 MG INJ IV ×3 (03:30→13:44)
[2019-03-17] MEDS: SOD CHLORIDE 0.45% 1,000 ML IV (07:01)
[2019-03-17] MEDS: COLISTIMETHATE 75 MG in SOD CHLORIDE 0.9% 100 ML IVPB ×2 (08:08→21:50)
[2019-03-17] MEDS: DAKINS 0.0125%(1/40) 473 ML SOLUTION TP ×2 (09:00→20:51)
[2019-03-17] MEDS: LINEZOLID 600 MG/300 ML (PMX) 300 ML IVPB ×2 (09:15→22:27)
[2019-03-17 15:38] LABS: ANION GAP 10 (5-13); BLOOD UREA NITROGEN 17 mg/dl (7-20); CALCIUM 8.9 mg/dl (8.4-10.2); CARBON DIOXIDE 17 mmol/L (21-31); CHLORIDE 119 mmol/L (97-110); Estimated GFR > 60 mL/min (>60); GLUCOSE 79 mg/dl (70-220); POTASSIUM 3.9 mmol/L (3.5-5.1); SODIUM 146 mmol/L (135-144)
[2019-03-17] MEDS: FLUCONAZOLE 100 MG/50 ML (PMX) 50 ML IVPB (16:09)
[2019-03-17] MEDS: HYDROmorphONE 0.5 MG/0.5 ML SYG IV (17:42)
[2019-03-17] MEDS: HYDROCODONE/APAP (5/325) TAB PO (19:44)
[2019-03-17] MEDS: ONDANSETRON 4 MG INJ IV (19:44)
[2019-03-17] MEDS: hydrALAzine 20 MG INJ IV (22:23)
[2019-03-18] MEDS: HYDROmorphONE 0.5 MG/0.5 ML SYG IV ×4 (04:14→15:07)
[2019-03-18] MEDS: DIPHENHYDRAMINE 50 MG INJ IV ×3 (05:04→22:35)
[2019-03-18] MEDS: DAKINS 0.0125%(1/40) 473 ML SOLUTION TP ×2 (09:48→21:57)
[2019-03-18] MEDS: LINEZOLID 600 MG/300 ML (PMX) 300 ML IVPB ×2 (09:48→21:48)
[2019-03-18] MEDS: HYDROCODONE/APAP (5/325) TAB PO ×2 (09:58→20:01)
[2019-03-18] MEDS: COLISTIMETHATE 75 MG in SOD CHLORIDE 0.9% 100 ML IVPB ×2 (10:51→20:49)
[2019-03-18] MEDS: IOHEXOL 300MG/ML 30 ML BTL (13:04)
[2019-03-18] MEDS: FLUCONAZOLE 100 MG/50 ML (PMX) 50 ML IVPB (16:39)
[2019-03-18] MEDS: HYDROmorphONE 1 MG/ML SYG IV ×2 (18:46→21:47)
[2019-03-18] MEDS: LORAZEPAM 2 MG INJ IV (20:50)
[2019-03-19] MEDS: HYDROCODONE/APAP (5/325) TAB PO (00:03)
[2019-03-19] MEDS: HYDROmorphONE 0.5 MG/0.5 ML SYG IV (00:31)
[2019-03-19] MEDS: HYDROmorphONE 1 MG/ML SYG IV ×6 (01:03→22:23)
[2019-03-19] MEDS: DIPHENHYDRAMINE 50 MG INJ IV ×3 (05:58→18:17)
[2019-03-19] MEDS: LORAZEPAM 2 MG INJ IV ×4 (06:26→20:01)
[2019-03-19] MEDS: IOHEXOL 300MG/ML 150 ML BTL (08:09)
[2019-03-19] MEDS: COLISTIMETHATE 75 MG in SOD CHLORIDE 0.9% 100 ML IVPB ×2 (08:12→21:08)
[2019-03-19] MEDS: DAKINS 0.0125%(1/40) 473 ML SOLUTION TP ×2 (08:12→21:08)
[2019-03-19] MEDS: LINEZOLID 600 MG/300 ML (PMX) 300 ML IVPB ×2 (09:02→22:22)
[2019-03-19] MEDS: CARISOPRODOL 350 MG TAB PO (15:48)
[2019-03-19] MEDS: FLUCONAZOLE 100 MG/50 ML (PMX) 50 ML IVPB (15:48)
[2019-03-19] MEDS: OXYCODONE/ACETAMINOPHEN (10/325) TAB PO (20:01)
[2019-03-20] MEDS: DIPHENHYDRAMINE 50 MG INJ IV ×3 (00:36→17:01)
[2019-03-20] MEDS: CARISOPRODOL 350 MG TAB PO ×3 (00:55→20:40)
[2019-03-20] MEDS: OXYCODONE/ACETAMINOPHEN (10/325) TAB PO ×2 (01:00→16:24)
[2019-03-20] MEDS: HYDROmorphONE 1 MG/ML SYG IV ×4 (05:51→18:30)
[2019-03-20] MEDS: LORAZEPAM 2 MG INJ IV ×3 (06:25→20:40)
[2019-03-20] MEDS: DAKINS 0.0125%(1/40) 473 ML SOLUTION TP ×2 (09:10→21:43)
[2019-03-20] MEDS: COLISTIMETHATE 75 MG in SOD CHLORIDE 0.9% 100 ML IVPB ×2 (09:10→20:50)
[2019-03-20] MEDS: LINEZOLID 600 MG/300 ML (PMX) 300 ML IVPB ×2 (10:03→21:43)
[2019-03-20] MEDS: SOD CHLORIDE 0.45% 1,000 ML IV (12:59)
[2019-03-20] MEDS: FLUCONAZOLE 100 MG/50 ML (PMX) 50 ML IVPB (16:19)
[2019-03-21] MEDS: HYDROmorphONE 1 MG/ML SYG IV ×6 (00:41→23:42)
[2019-03-21] MEDS: DIPHENHYDRAMINE 50 MG INJ IV ×4 (01:17→20:52)
[2019-03-21] MEDS: LORAZEPAM 2 MG INJ IV ×3 (01:45→12:00)
[2019-03-21] MEDS: SOD CHLORIDE 0.45% 1,000 ML IV (07:30)
[2019-03-21 08:27] LABS: ADD MAN DIFF? NO
[2019-03-21 08:30] LABS: BASOPHILS % 0.4 % (0.0-2.0); EOSINOPHILS # 0.6 10^3/ul (0.0-0.5); HEMATOCRIT 30.1 % (42.0-52.0); HEMOGLOBIN 8.8 g/dl (14.0-18.0); LYMPHOCYTES # 2.3 10^3/ul (0.8-2.9); LYMPHOCYTES % 32.2 % (15.0-51.0); MEAN CORPUSCULAR HEMOGLOBIN 28.5 pg (29.0-33.0); MEAN CORPUSCULAR HGB CONC 29.2 g/dl (32.0-37.0); MEAN CORPUSCULAR VOLUME 97.4 fl (82.0-101.0); MEAN PLATELET VOLUME 8.3 fl (7.4-10.4); MONOCYTE # 0.5 10^3/ul (0.3-0.9); MONOCYTES % 6.6 % (0.0-11.0); NEUTROPHIL # 3.8 10^3/ul (1.6-7.5); NEUTROPHILS % 52.2 % (39.0-77.0); PLATELET COUNT 513 10^3/UL (140-415); RED BLOOD COUNT 3.09 10^6/ul (4.70-6.10); RED CELL DISTRIBUTION WIDTH 17.5 % (11.5-14.5)
[2019-03-21 08:30] LABS: WHITE BLOOD COUNT 7.3 10^3/ul (4.8-10.8)
[2019-03-21 08:49] LABS: ANION GAP 11 (5-13); BLOOD UREA NITROGEN 12 mg/dl (7-20); CALCIUM 8.9 mg/dl (8.4-10.2); CARBON DIOXIDE 23 mmol/L (21-31); CHLORIDE 115 mmol/L (97-110); CREATININE 0.64 mg/dl (0.61-1.24); Estimated GFR > 60 mL/min (>60); GLUCOSE 77 mg/dl (70-220); MAGNESIUM 1.2 mg/dl (1.7-2.5); PHOSPHORUS 3.6 mg/dl (2.5-4.9); POTASSIUM 4.4 mmol/L (3.5-5.1); SODIUM 149 mmol/L (135-144)
[2019-03-21] MEDS: DAKINS 0.0125%(1/40) 473 ML SOLUTION TP ×2 (08:53→21:00)
[2019-03-21] MEDS: LINEZOLID 600 MG/300 ML (PMX) 300 ML IVPB ×2 (08:53→22:16)
[2019-03-21] MEDS: COLISTIMETHATE 75 MG in SOD CHLORIDE 0.9% 100 ML IVPB ×2 (08:53→21:01)
[2019-03-21] MEDS: DEXTROSE 5% 1,000 ML IV ×2 (09:06→22:20)
[2019-03-21] MEDS: MAGNESIUM SULFATE 2 GM/50 ML 50 ML IVPB ×2 (10:58→17:40)
[2019-03-21] MEDS ORDERED: PROPOFOL 40 ML (15:50)
[2019-03-21] MEDS ORDERED: FENTAnyl 50 MCG/ML VIAL (15:50)
[2019-03-21] MEDS ORDERED: LIDOCAINE 100 MG SYRINGE (16:00)
[2019-03-21] MEDS ORDERED: MIDAZOLAM 1 MG/ML 2 ML INJ (16:00)
[2019-03-21] MEDS ORDERED: FENTAnyl 50 MCG/ML VIAL IV (16:30)
[2019-03-21] MEDS: FENTAnyl 50 MCG/ML VIAL IV ×2 (16:56→17:03)
[2019-03-21] MEDS: FLUCONAZOLE 100 MG/50 ML (PMX) 50 ML IVPB (17:39)
[2019-03-21] MEDS: CARISOPRODOL 350 MG TAB PO (20:51)
[2019-03-22] MEDS: LORAZEPAM 2 MG INJ IV ×3 (00:07→20:08)
[2019-03-22] MEDS: HYDROmorphONE 1 MG/ML SYG IV ×3 (04:00→13:47)
[2019-03-22] MEDS: COLISTIMETHATE 75 MG in SOD CHLORIDE 0.9% 100 ML IVPB ×2 (08:29→20:08)
[2019-03-22] MEDS: LINEZOLID 600 MG/300 ML (PMX) 300 ML IVPB ×2 (08:29→20:50)
[2019-03-22] MEDS: DAKINS 0.0125%(1/40) 473 ML SOLUTION TP ×2 (08:29→20:09)
[2019-03-22] MEDS: DIPHENHYDRAMINE 50 MG INJ IV ×3 (10:54→23:15)
[2019-03-22] MEDS: CARISOPRODOL 350 MG TAB PO ×2 (10:54→20:08)
[2019-03-22] MEDS: FLUCONAZOLE 100 MG/50 ML (PMX) 50 ML IVPB (16:37)
[2019-03-22] MEDS: OXYCODONE/ACETAMINOPHEN (10/325) TAB PO ×2 (16:38→23:15)
[2019-03-23] MEDS: DIPHENHYDRAMINE 50 MG INJ IV ×4 (01:17→22:53)
[2019-03-23] MEDS: COLISTIMETHATE 75 MG in SOD CHLORIDE 0.9% 100 ML IVPB ×2 (09:05→21:08)
[2019-03-23] MEDS: CARISOPRODOL 350 MG TAB PO ×2 (09:06→21:06)
[2019-03-23] MEDS: DAKINS 0.0125%(1/40) 473 ML SOLUTION TP ×2 (09:07→21:09)
[2019-03-23] MEDS: LINEZOLID 600 MG/300 ML (PMX) 300 ML IVPB ×2 (10:05→21:50)
[2019-03-23] MEDS: LORAZEPAM 2 MG INJ IV ×2 (12:31→17:47)
[2019-03-23] MEDS: OXYCODONE/ACETAMINOPHEN (10/325) TAB PO ×3 (13:26→22:52)
[2019-03-23] MEDS: ALPRAZOLAM 0.5 MG TAB PO (14:28)
[2019-03-23] MEDS: FLUCONAZOLE 100 MG/50 ML (PMX) 50 ML IVPB (15:59)
[2019-03-23 22:13] LABS: WHITE BLOOD COUNT 10.2 10^3/ul (4.8-10.8)
[2019-03-23 22:13] LABS: ADD MAN DIFF? NO; BASOPHILS % 0.3 % (0.0-2.0); EOSINOPHILS # 0.7 10^3/ul (0.0-0.5); EOSINOPHILS % 6.5 % (0.0-7.0); HEMOGLOBIN 7.9 g/dl (14.0-18.0); LYMPHOCYTES # 2.7 10^3/ul (0.8-2.9); LYMPHOCYTES % 26.4 % (15.0-51.0); MEAN CORPUSCULAR HEMOGLOBIN 29.3 pg (29.0-33.0); MEAN CORPUSCULAR HGB CONC 30.4 g/dl (32.0-37.0); MEAN CORPUSCULAR VOLUME 96.3 fl (82.0-101.0); MONOCYTE # 0.9 10^3/ul (0.3-0.9); MONOCYTES % 8.4 % (0.0-11.0); NEUTROPHIL # 5.9 10^3/ul (1.6-7.5); NEUTROPHILS % 57.8 % (39.0-77.0); PLATELET COUNT 422 10^3/UL (140-415); RED CELL DISTRIBUTION WIDTH 17.3 % (11.5-14.5)
[2019-03-23 22:31] LABS: MAGNESIUM 1.1 mg/dl (1.7-2.5)
[2019-03-23 22:31] LABS: PHOSPHORUS 3.3 mg/dl (2.5-4.9)
[2019-03-23 22:32] LABS: ALANINE AMINOTRANSFERASE 11 IU/L (13-69); ALBUMIN 3.2 g/dl (3.3-4.9); ALBUMIN/GLOBULIN RATIO 0.88; ALKALINE PHOSPHATASE 136 IU/L (42-121); ANION GAP 11 (5-13); ASPARTATE AMINO TRANSFERASE 13 IU/L (15-46); BILIRUBIN,INDIRECT 0.1 mg/dl (0-1.1); BILIRUBIN,TOTAL 0.1 mg/dl (0.2-1.3); BLOOD UREA NITROGEN 10 mg/dl (7-20); CALCIUM 8.5 mg/dl (8.4-10.2); CARBON DIOXIDE 22 mmol/L (21-31); CHLORIDE 109 mmol/L (97-110); CREATININE 0.69 mg/dl (0.61-1.24); Estimated GFR > 60 mL/min (>60); GLUCOSE 121 mg/dl (70-220); POTASSIUM 4.2 mmol/L (3.5-5.1); SODIUM 142 mmol/L (135-144); TOTAL PROTEIN 6.8 g/dl (6.1-8.1)
[2019-03-24] MEDS: LORAZEPAM 2 MG INJ IV ×3 (01:39→15:19)
[2019-03-24] MEDS: DIPHENHYDRAMINE 50 MG INJ IV ×3 (06:01→18:11)
[2019-03-24] MEDS: CARISOPRODOL 350 MG TAB PO ×2 (06:01→16:11)
[2019-03-24] MEDS: DAKINS 0.0125%(1/40) 473 ML SOLUTION TP ×2 (08:56→21:00)
[2019-03-24] MEDS: COLISTIMETHATE 75 MG in SOD CHLORIDE 0.9% 100 ML IVPB (08:56)
[2019-03-24] MEDS: OXYCODONE/ACETAMINOPHEN (10/325) TAB PO ×2 (09:08→20:51)
[2019-03-24] MEDS: LINEZOLID 600 MG/300 ML (PMX) 300 ML IVPB (09:38)
[2019-03-24] MEDS: NACL 0.9% 3 ML SYG IV (12:11)
[2019-03-24] MEDS: ALPRAZOLAM 0.5 MG TAB PO ×2 (13:10→20:52)
[2019-03-24] MEDS: ONDANSETRON 4 MG INJ IV (18:14)
[2019-03-25] MEDS: DIPHENHYDRAMINE 50 MG INJ IV ×4 (00:26→18:39)
[2019-03-25] MEDS: CARISOPRODOL 350 MG TAB PO ×3 (00:26→21:12)
[2019-03-25] MEDS: ALPRAZOLAM 0.5 MG TAB PO ×3 (06:21→21:12)
[2019-03-25] MEDS: DAKINS 0.0125%(1/40) 473 ML SOLUTION TP ×2 (08:56→21:00)
[2019-03-25] MEDS: NACL 0.9% 3 ML SYG IV (08:57)
[2019-03-25] MEDS: OXYCODONE/ACETAMINOPHEN (10/325) TAB PO ×3 (09:24→18:39)
[2019-03-25 10:14] LABS: ADD MAN DIFF? NO
[2019-03-25 10:17] LABS: BASOPHILS % 0.3 % (0.0-2.0); EOSINOPHILS # 0.4 10^3/ul (0.0-0.5); EOSINOPHILS % 5.4 % (0.0-7.0); HEMATOCRIT 30.2 % (42.0-52.0); HEMOGLOBIN 9.1 g/dl (14.0-18.0); LYMPHOCYTES # 1.9 10^3/ul (0.8-2.9); LYMPHOCYTES % 23.8 % (15.0-51.0); MEAN CORPUSCULAR HEMOGLOBIN 29.2 pg (29.0-33.0); MEAN CORPUSCULAR HGB CONC 30.1 g/dl (32.0-37.0); MEAN CORPUSCULAR VOLUME 96.8 fl (82.0-101.0); MONOCYTE # 0.6 10^3/ul (0.3-0.9); MONOCYTES % 7.6 % (0.0-11.0); NEUTROPHIL # 4.9 10^3/ul (1.6-7.5); PLATELET COUNT 391 10^3/UL (140-415); RED BLOOD COUNT 3.12 10^6/ul (4.70-6.10); RED CELL DISTRIBUTION WIDTH 17.8 % (11.5-14.5)
[2019-03-25 10:17] LABS: WHITE BLOOD COUNT 7.9 10^3/ul (4.8-10.8)
[2019-03-25 10:39] LABS: ANION GAP 13 (5-13); BLOOD UREA NITROGEN 12 mg/dl (7-20); CALCIUM 9.1 mg/dl (8.4-10.2); CARBON DIOXIDE 26 mmol/L (21-31); CHLORIDE 105 mmol/L (97-110); Estimated GFR > 60 mL/min (>60); GLUCOSE 116 mg/dl (70-220); MAGNESIUM 1.4 mg/dl (1.7-2.5); SODIUM 144 mmol/L (135-144)
[2019-03-26] MEDS: OXYCODONE/ACETAMINOPHEN (10/325) TAB PO ×2 (00:34→08:58)
[2019-03-26] MEDS: DIPHENHYDRAMINE 50 MG INJ IV ×2 (00:34→06:03)
[2019-03-26] MEDS: ALPRAZOLAM 0.5 MG TAB PO (06:03)
[2019-03-26] MEDS: DAKINS 0.0125%(1/40) 473 ML SOLUTION TP (08:42)
[2019-03-26] MEDS: CARISOPRODOL 350 MG TAB PO (08:58)
== END 2019-03-26 09:55 | disposition home health service (06) | DRG 682 ==
LOC: E/R 11:07 → 5EC 03-17 17:06 → 2NE 03-13 16:15 → TEL 18:57
PROC: 0T25X0Z Change Drainage Device in Kidney, External Approach (ICD-10-PCS; principal; 2019-03-21 15:30)
PROC: BT021ZZ Plain Radiography of Left Kidney using Low Osmolar Contrast (ICD-10-PCS; 2019-03-21 15:30)
DX: N17.9 Acute kidney failure, unspecified (principal); L89.324 Pressure ulcer of left buttock, stage 4; L89.314 Pressure ulcer of right buttock, stage 4; L89.154 Pressure ulcer of sacral region, stage 4; N39.0 Urinary tract infection, site not specified; K56.50 Intestinal adhesions [bands], unspecified as to partial versus complete obstruction; G82.20 Paraplegia, unspecified; E44.0 Moderate protein-calorie malnutrition; Z68.1 Body mass index [BMI] 19.9 or less, adult; E87.2 Acidosis; E87.1 Hypo-osmolality and hyponatremia; K56.609 Unspecified intestinal obstruction, unspecified as to partial versus complete obstruction; E87.5 Hyperkalemia; E86.0 Dehydration; Z72.0 Tobacco use; Z93.3 Colostomy status; Z93.6 Other artificial openings of urinary tract status; T83.022A Displacement of nephrostomy catheter, initial encounter
CPT/HCPCS: 71045; 72100; 74018; 74176; 74250; 74425; 74475; 76775; 80048; 80053; 80076; 81001; 81003; 82043; 82150; 82570; 82962; 83690; 83735; 83930; 83935; 84100; 84155; 84300; 85025; 87086; 89190; 93005; 94644; 99285-25

== ENCOUNTER 2019-05-01 11:09 | Emergency (ER) | payer OTHER | END 2019-05-01 13:11 | disposition home or self-care (01) | LOC: FTE 11:09 → E/R 13:11 | DX: Z43.6 Encounter for attention to other artificial openings of urinary tract (principal); F17.210 Nicotine dependence, cigarettes, uncomplicated | CPT/HCPCS: 99282 ==

== ENCOUNTER 2019-06-23 18:31 | Emergency (ER) | payer SELFPAY, OTHER | END 2019-06-23 19:55 | disposition left against medical advice (07) | LOC: E/R 18:31 | DX: Z53.21 Procedure and treatment not carried out due to patient leaving prior to being seen by health care provider (principal) ==